=== PATIENT | male | born 1945 | race Hispanic/Latino ===

== ENCOUNTER 2019-01-30 18:40 | Emergency (ER) | payer MEDICARE ==
[~2019-01-30] VITALS: Ht 170.2 cm; Wt 59.0 kg
--- NOTE | 2019-01-30 20:07 | Diagnostic Imaging Report ---
ANKLE 3 VIEW RT - [facility]OPD - 3 views HISTORY: Pain COMPARISON: None available. FINDINGS: Bones: Generalized demineralization. No acute displaced fracture. Osseous alignment is within normal limits. Joints: The joint spaces are well-maintained. Soft tissues: Lateral malleolar soft tissue swelling. Vascular calcifications. IMPRESSION: No acute radiographic abnormality. Signed by: Dr. Gary Loya MD on 01/30/2019 8:04 PM
--- NOTE | 2019-01-30 20:09 | Diagnostic Imaging Report ---
FOOT 3 VIEW RT - [facility]OPD - 3 views HISTORY: Pain COMPARISON: None available. FINDINGS: Bones: Generalized demineralization. No acute displaced fracture. Osseous alignment is within normal limits. Joints: The joint spaces are well-maintained. Soft tissues: The soft tissues appear unremarkable. Vascular calcifications. IMPRESSION: No acute fracture or dislocation of the right foot. Signed by: Dr. Gary Loya MD on 01/30/2019 8:06 PM
== END 2019-01-30 20:27 | disposition home or self-care (01) ==
LOC: FSED 18:40
DX: S90.01XA Contusion of right ankle, initial encounter (principal); S90.31XA Contusion of right foot, initial encounter; W11.XXXA Fall on and from ladder, initial encounter; Y92.008 Other place in unspecified non-institutional (private) residence as the place of occurrence of the external cause
CPT/HCPCS: 99283